=== PATIENT | female | born 1960 | race Caucasian/White ===

== ENCOUNTER 2017-08-10 12:21 | Emergency (ER) | payer OTHER ==
[~2017-08-10] VITALS: Ht 157.5 cm; Wt 80.9 kg
[2017-08-10 12:53] VITALS: BP 158/108; Ht 157.5 cm; Wt 80.9 kg
== END 2017-08-10 14:37 | disposition home or self-care (01) ==
LOC: ED 12:21
DX: G51.0 Bell's palsy (principal); G62.9 Polyneuropathy, unspecified; R03.0 Elevated blood-pressure reading, without diagnosis of hypertension; E11.9 Type 2 diabetes mellitus without complications; Z88.5 Allergy status to narcotic agent
CPT/HCPCS: 82962; J1885